=== PATIENT | female | born 1955 | race Caucasian/White ===

== ENCOUNTER → 2017-02-14 | Outpatient (CLI) | payer OTHER ==
[~2017-02-14] MED LIST: ALBUTEROL INH; CHOL100015 PO; INSU100C5 SQ-INSULIN; INSU100I32 SC; NONE PER PT; OXYC10TA6 PO; ROSU5TAB PO
== END | disposition home or self-care (01) ==
LOC: STAR 13:03
PROVIDERS: ATTEND Orthopaedic Surgery
DX: Z01.818 Encounter for other preprocedural examination (principal); M75.41 Impingement syndrome of right shoulder; M19.90 Unspecified osteoarthritis, unspecified site; J45.909 Unspecified asthma, uncomplicated
CPT/HCPCS: 93005

== ENCOUNTER 2017-02-19 09:00 | Inpatient (IN) | payer OTHER ==
[~2017-02-19] VITALS: Ht 152.4 cm; Wt 106.5 kg
[~2017-02-19 09:00] MED LIST changes: +ROPIvacaine/PF 0.5%, 20 ML ONE
[2017-02-19] MEDS ORDERED: LACTATED RINGERS 1,000 ML IV SCH (09:33)
[2017-02-19 09:57] VITALS: BP 146/81
[2017-02-19] MEDS ORDERED: ONDANSETRON 2MG/ML, 2ML ONE (11:12)
[2017-02-19] MEDS ORDERED: GLYCOPYRROLATE 0.2MG/1ML ONE (11:12)
[2017-02-19] MEDS ORDERED: PROPOFOL 10 MG/ML, 20ML ONE (11:12)
[2017-02-19] MEDS ORDERED: SUCCINYLCHOLINE 20 MG/ML, 10ML ONE (11:12)
[2017-02-19] MEDS ORDERED: ROCURONIUM 10 MG/ML ONE (11:12)
[2017-02-19] MEDS ORDERED: NEOSTIGMINE 1 MG/ML, 10ML ONE (11:12)
[2017-02-19] MEDS ORDERED: CEFAZOLIN 1,000 MG ONE (11:12)
[2017-02-19] MEDS ORDERED: MIDAZOLAM 1 MG/ML, 2ML ONE (11:13)
[2017-02-19] MEDS ORDERED: FENTANYL PF 100 MCG/2ML ONE ×2 (11:13→13:26)
[2017-02-19] MEDS ORDERED: CLINDAMYCIN 150 MG/ML, 6ML ONE (11:37)
[2017-02-19] MEDS ORDERED: LABETALOL 5MG/ML, 20ML IV PRN (12:00)
[2017-02-19] MEDS ORDERED: METOPROLOL 1 MG/ML, 5ML IV PRN (12:00)
[2017-02-19] MEDS ORDERED: FENTANYL PF 100 MCG/2ML IV PRN (12:00)
[2017-02-19] MEDS ORDERED: ALBUTEROL SULFATE 2.5 MG/3 ML NPPB PRN ×2 (12:00→16:00)
[2017-02-19] MEDS ORDERED: PROMETHAZINE 25 MG/ML, 1ML IV PRN (12:00)
[2017-02-19] MEDS ORDERED: ACETAMINOPHEN 325 MG TABLET PO PRN (12:00)
[2017-02-19] MEDS ORDERED: ONDANSETRON 2MG/ML, 2ML IVPush PRN (12:00)
[2017-02-19] MEDS ORDERED: EPHEDRINE 50 MG/ML, 1ML IVPush PRN (12:00)
[2017-02-19] MEDS ORDERED: MIDAZOLAM 1 MG/ML, 2ML IV PRN (12:00)
[2017-02-19] MEDS ORDERED: MEPERIDINE/PF 25MG/0.5ML IVPush PRN (12:00)
[2017-02-19] MEDS ORDERED: hydrALAzine 20 MG/ML, 1ML IV PRN (12:00)
[2017-02-19] MEDS ORDERED: HYDROmorphone 1 MG/ML, 1ML IV PRN (12:00)
[2017-02-19] MEDS ORDERED: OXYcodone 5 MG/5 ML ORAL.SOL UDC PO PRN (12:00)
[2017-02-19] MEDS ORDERED: ACETAMINOPHEN 650 MG/20.3 ML UDC ONE (13:26)
[2017-02-19] MEDS ORDERED: OXYcodone 5 MG/5 ML ORAL.SOL UDC ONE (13:26)
[2017-02-19] MEDS ORDERED: ONDANSETRON 2MG/ML, 2ML IV PRN (16:00)
[2017-02-19] MEDS ORDERED: morphine SULFATE 10 MG/ML, 1ML IV PRN (16:00)
[2017-02-19] MEDS: CEFAZOLIN PMX 1GM/50ML 50 ML IVPB SCH (18:05)
[2017-02-19] MEDS: OXYcodone/APAP 5/325MG TABLET PO PRN (19:51)
[2017-02-19] MEDS ORDERED: SIMVASTATIN 10 MG TABLET PO SCH (21:00)
[2017-02-19] MEDS: SODIUM CHLORIDE FLUSH 10ML SYR IVF SCH (21:17)
[2017-02-19] MEDS: INSULIN ASPART 100 UNITS/ML, 3ML PEN LOW DOSE SS SQ-INSULIN SCH (22:25)
[2017-02-20] MEDS ORDERED: ONDANSETRON 2MG/ML, 2ML IVPush PRN
[2017-02-20] MEDS ORDERED: ONDANSETRON 4 MG TABLET PO PRN
[2017-02-20] MEDS ORDERED: MECLIZINE CHEWABLE 25 MG TAB PO PRN
[2017-02-20] MEDS: OXYcodone/APAP 5/325MG TABLET PO PRN ×4 (00:05→14:56)
[2017-02-20 00:14] VITALS: BP 124/64
[2017-02-20] MEDS: CEFAZOLIN PMX 1GM/50ML 50 ML IVPB SCH (03:05)
[2017-02-20 04:10] VITALS: BP 176/99
[2017-02-20 04:15] VITALS: BP 144/84
[2017-02-20] MEDS: INSULIN ASPART 100 UNITS/ML, 3ML PEN LOW DOSE SS SQ-INSULIN SCH ×2 (07:00→11:00)
[2017-02-20 07:53] VITALS: BP 171/83
[2017-02-20] MEDS: SODIUM CHLORIDE FLUSH 10ML SYR IVF SCH (09:00)
[2017-02-20 09:06] VITALS: BP 140/86
[2017-02-20 14:09] VITALS: BP 109/62
[2017-02-20] MEDS ORDERED: OXYC5CAP2 PO (15:15)
[2017-02-21] MEDS ORDERED: ERGOCALCIFEROL 50,000 UNIT CAPSULE PO SCH (09:00)
== END 2017-02-20 15:43 | disposition home or self-care (01) | DRG 483 ==
LOC: ORIP 09:00 → 4NOR 15:30 → DCLOUNGE 02-20 15:04
PROVIDERS: ADMIT Orthopaedic Surgery; ATTEND Orthopaedic Surgery
PROC: 0RPJ04Z Removal of Internal Fixation Device from Right Shoulder Joint, Open Approach (ICD-10-PCS; 2017-02-19)
PROC: 0RRJ00Z Replacement of Right Shoulder Joint with Reverse Ball and Socket Synthetic Substitute, Open Approach (ICD-10-PCS; principal; 2017-02-19 11:00)
DX: M19.011 Primary osteoarthritis, right shoulder (principal); Z88.8 Allergy status to other drugs, medicaments and biological substances; Z96.612 Presence of left artificial shoulder joint
CPT/HCPCS: 82962; J0690; J1815; J2250; J2405; J2704; J2710; J2795; J3010; J3490; J0330; J7120; Q0177